=== PATIENT | male | born 1970 | race Caucasian/White ===

== ENCOUNTER 2019-01-20 21:16 | Inpatient (IN) | payer MEDICAID ==
[~2019-01-20] VITALS: Ht 180.3 cm; Wt 110.7 kg
[2019-01-20 21:16] VITALS: BP_SYST 134
[~2019-01-20 21:16] MED LIST: ARIP2TAB3 PO; BUPR-120 PO; METO-442 PO; NITR-85 PO; SERT50TA PO
[2019-01-20] MEDS ORDERED: NACL 0.9% 1,000 ML IV ONE (22:30)
[2019-01-20 22:38] LABS: BASOPHILS # (AUTO) 0.3 K/uL (0.0-0.2); BASOPHILS % (AUTO) 2.3 % (0.0-2.0); EOSINOPHILS # (AUTO) 0.3 K/uL (0.0-0.4); HEMATOCRIT 41.1 % (36-54); HEMOGLOBIN 13.9 g/dL (14.0-18.0); LYMPHOCYTES # (AUTO) 1.6 K/uL (1.0-5.5); LYMPHOCYTES % (AUTO) 14.2 % (20.5-51.5); MEAN CORPUSCULAR HEMOGLOBIN 28 pg (27-31); MEAN CORPUSCULAR HGB CONC 34 % (32-36); MEAN CORPUSCULAR VOLUME 84 fL (79.0-98.0); MONOCYTES # (AUTO) 0.6 K/uL (0.0-1.0); NEUTROPHILS # (AUTO) 8.6 K/uL (1.8-7.7); NEUTROPHILS % (AUTO) 75.5 % (40.0-70.0); PLATELET COUNT (AUTO) 337 K/uL (130-430); RED BLOOD CELL COUNT(AUTO) 4.92 MIL/uL (4.2-6.2); RED CELL DISTRIBUTION WIDTH 14.6 % (9.0-15.0); WHITE BLOOD COUNT (AUTO) 11.4 K/uL (4.8-10.8)
[2019-01-20 22:58] LABS: ALANINE AMINOTRANSFERASE 38 U/L (12-78); ALBUMIN 3.5 g/dL (3.4-4.8); ALCOHOL, BLOOD 379 mg/dL (<10); ANION GAP 14 (5-15); ASPARTATE AMINOTRANSFERASE 52 U/L (10-37); CALCIUM 9.1 mg/dL (8.4-11.0); CHLORIDE 99 mmol/L (98-107); CREATININE 0.95 mg/dL (0.55-1.30); GLUCOSE 114 mg/dL (70-99); SODIUM SERUM 137 mmol/L (136-145); TOTAL BILIRUBIN 0.9 mg/dL (0.0-1.0); UREA NITROGEN, BLOOD 12 mg/dL (8-21)
[2019-01-20 22:59] LABS: ACETAMINOPHEN < 1 ug/mL (1-30); GFR AFRICAN AMERICAN 109 mL/min (>90)
[2019-01-21] MEDS ORDERED: FOLIC ACID 1 MG, THIAMINE HCL 100 MG, MAGNESIUM SULFATE 1 GM, MVI 10 ML in NACL 0.9% 1,... IV ONE (06:00)
[2019-01-21] MEDS: LORazepam 2 MG/ML VIAL IVP PRN ×5 (06:34→20:25)
[2019-01-21 08:00] VITALS: BP_SYST 126
[2019-01-21] MEDS: FOLIC ACID 1 MG, THIAMINE HCL 100 MG, MAGNESIUM SULFATE 1 GM, MVI 10 ML in NACL 0.9% 1,... IV SCH (08:40)
[2019-01-21] MEDS ORDERED: buPROPion HCL 150 MG XL TAB PO SCH (09:00)
[2019-01-21] MEDS: chlordiazePOXIDE HCL 25 MG CAPSULE PO SCH ×4 (09:10→20:24)
[2019-01-21] MEDS: THIAMINE HCL 100 MG TABLET PO SCH (09:10)
[2019-01-21] MEDS: METOPROLOL TARTRATE 50 MG TABLET PO SCH ×2 (09:10→20:24)
[2019-01-21] MEDS: FOLIC ACID 1 MG TABLET PO SCH (09:11)
[2019-01-21] MEDS: SERTRALINE HCL 50 MG TABLET PO SCH (09:11)
[2019-01-21 12:00] VITALS: BP_SYST 157
[2019-01-21 16:00] VITALS: BP_SYST 153
[2019-01-21 20:00] VITALS: BP_SYST 140
[2019-01-21] MEDS: ARIPiprazole 2 MG TAB PO SCH (20:24)
[2019-01-22] MEDS: LORazepam 2 MG/ML VIAL IVP PRN ×2 (00:42→12:00)
[2019-01-22 04:32] VITALS: BP_SYST 151
[2019-01-22 08:21] VITALS: BP_SYST 147
[2019-01-22] MEDS: FOLIC ACID 1 MG, THIAMINE HCL 100 MG, MAGNESIUM SULFATE 1 GM, MVI 10 ML in NACL 0.9% 1,... IV SCH (08:24)
[2019-01-22] MEDS: chlordiazePOXIDE HCL 25 MG CAPSULE PO SCH ×4 (08:24→20:44)
[2019-01-22] MEDS: THIAMINE HCL 100 MG TABLET PO SCH (08:24)
[2019-01-22] MEDS: SERTRALINE HCL 50 MG TABLET PO SCH (08:24)
[2019-01-22] MEDS: FOLIC ACID 1 MG TABLET PO SCH (08:24)
[2019-01-22] MEDS: METOPROLOL TARTRATE 50 MG TABLET PO SCH ×2 (08:25→20:45)
[2019-01-22 12:00] VITALS: BP_SYST 125
[2019-01-22 16:10] VITALS: BP_SYST 136
[2019-01-22] MEDS: LOPERAMIDE HCL 2 MG CAPSULE PO PRN (18:32)
[2019-01-22 20:00] VITALS: BP_SYST 147
[2019-01-22] MEDS: ARIPiprazole 2 MG TAB PO SCH (20:44)
[2019-01-22 22:45] VITALS: BP_SYST 132
[2019-01-23 00:02] LABS: BILIRUBIN,URINE NEGATIVE (NEGATIVE); BLOOD, URINE NEGATIVE (NEGATIVE); CLARITY/URINE CLEAR (CLEAR); COLOR,URINE YELLOW (YELLOW); GLUCOSE,URINE NEGATIVE (NEGATIVE); KETONES,URINE TRACE (NEGATIVE); LEUKOCYTE ESTERASE ,URINE NEGATIVE (NEGATIVE); NITRITE, URINE NEGATIVE (NEGATIVE); PH,URINE 7.5 (5.0-8.0); PROTEIN URINE NEGATIVE (NEGATIVE)
[2019-01-23 00:12] LABS: BARBITURATE, URINE NEGATIVE (NEG <=200); BENZODIAZEPINE, URINE NEGATIVE (NEG <=150); CANNABINOID, URINE POSITIVE (NEG <=50); COCAINE, URINE NEGATIVE (NEG <=150); METHAMPHETAMINES SCREEN,URINE NEGATIVE (NEG <=500); OPIATE, URINE NEGATIVE (NEG <=100); PHENCYCLIDINE SCREEN,URINE NEGATIVE (NEG <=25); UR TRICYCLIC ANTIDEPRESSANTS NEGATIVE (NEG <=300); URINE AMPHETAMINE NEGATIVE (NEG <=500); URINE METHADONE NEGATIVE (NEG <=200); URINE OXYCODONE SCREEN NEGATIVE (NEG <=100); URINE PROPOXYPHENE SCREEN NEGATIVE (NEG <=300)
[2019-01-23] MEDS: LORazepam 2 MG/ML VIAL IVP PRN (00:18)
[2019-01-23 08:00] VITALS: BP_SYST 134
[2019-01-23] MEDS: chlordiazePOXIDE HCL 25 MG CAPSULE PO SCH ×2 (10:09→12:39)
[2019-01-23] MEDS: SERTRALINE HCL 50 MG TABLET PO SCH (10:09)
[2019-01-23] MEDS: FOLIC ACID 1 MG, THIAMINE HCL 100 MG, MAGNESIUM SULFATE 1 GM, MVI 10 ML in NACL 0.9% 1,... IV SCH (10:09)
[2019-01-23] MEDS: METOPROLOL TARTRATE 50 MG TABLET PO SCH (10:10)
[2019-01-23] MEDS: THIAMINE HCL 100 MG TABLET PO SCH (10:10)
[2019-01-23] MEDS: FOLIC ACID 1 MG TABLET PO SCH (10:11)
[2019-01-23] MEDS: LOPERAMIDE HCL 2 MG CAPSULE PO PRN (12:57)
[2019-01-23 15:40] VITALS: BP_SYST 128
== END 2019-01-23 16:00 | DRG 775 ==
LOC: SED 21:16 → STU 01-21 05:18 → SMU 01-22 11:29
PROVIDERS: ADMIT Internal Medicine; ATTEND Internal Medicine
DX: F10.229 Alcohol dependence with intoxication, unspecified (principal); R45.851 Suicidal ideations; R56.9 Unspecified convulsions; I10 Essential (primary) hypertension; Z60.2 Problems related to living alone; E66.9 Obesity, unspecified; F17.200 Nicotine dependence, unspecified, uncomplicated; F32.9 Major depressive disorder, single episode, unspecified; Z79.899 Other long term (current) drug therapy; Z91.14 Patient's other noncompliance with medication regimen; Z91.5 Personal history of self-harm; Z68.34 Body mass index [BMI] 34.0-34.9, adult; Z56.0 Unemployment, unspecified
CPT/HCPCS: 36415; 80053; 80307; 81003; 85025; 93005; 96360; 99285; G0378; G0480; G0481; G0482; J2060; J3411; J3475; J3490; J7030